=== PATIENT | female | born 1995 | race African-American/Black ===

== ENCOUNTER 2017-07-20 17:46 | Emergency (ER) | payer MEDICAID, OTHER ==
[~2017-07-20] VITALS: Ht 160 cm; Wt 56.0 kg
[~2017-07-20 17:46] MED LIST: FEXO1TAB97 PO; FLUT50SP EACH NARE
[2017-07-20 17:47] VITALS: BP 115/55; PULSE 94; RESP 16; TEMP 98.8; O2SAT 100
[2017-07-20] MEDS ORDERED: IOHEXOL 350 MG/ML 10 ML VIAL (for RAD DIAG) IVCONTRAST ONE (17:47)
[2017-07-20 18:00] VITALS: O2SAT 99
--- NOTE | 2017-07-20 18:06 | PD ---
HPI Chief Complaint: Abdominal Pain Time Seen by Provider: 17:57 Travel History International Travel<30 days: No Contact w/Intl Traveler<30days: No Traveled to known affect area: No History of Present Illness HPI 22-year-old female here for evaluation of abdominal pain. The patient reports that the pain started about 5 hours ago, is in her mid abdomen and radiates to her suprapubic region, is constant, 7 out of 10, sharp, worse with urination and movements. She denies fevers or chills. No vomiting or diarrhea. No history of abdominal surgeries. Her last menstrual period was 3 weeks ago. She reports that she last had sexual intercourse 3 months ago. She denies abnormal vaginal discharge or bleeding. PFSH Past Medical History ?: Not LMP: JUNE 2017 Social History Alcohol Use: No Tobacco Use: No Substance Use: No Allergies-Medications (Allergen,Severity, Reaction): Coded Allergies: No Known Allergies (Unverified , 07/20/17) Reported Meds & Prescriptions Reported Meds & Active Scripts Active No Active Prescriptions or Reported Medications Review of Systems Except as stated in HPI: all other systems reviewed are Neg Physical Exam Narrative GENERAL: Well-developed, well-nourished, comfortable, no apparent distress. SKIN: Focused skin assessment warm/dry. HEAD: Atraumatic. Normocephalic. EYES: Pupils equal and round. No scleral icterus. No injection or drainage. ENT: Mucous membranes pink and moist. NECK: Trachea midline. No JVD. CARDIOVASCULAR: Regular rate and rhythm. RESPIRATORY: No accessory muscle use. Clear to auscultation. Breath sounds equal bilaterally. GASTROINTESTINAL: Abdomen soft, nondistended. Moderate diffuse tenderness without peritoneal signs. No hernias. Normal bowel sounds. 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 Normal external genitalia. Scant/physiologic/jup-[id number]-[id number] vaginal discharge. Normal- appearing cervix. No CMT. No adnexal masses or tenderness. MUSCULOSKELETAL: No obvious deformities. No clubbing. No cyanosis. No edema. NEUROLOGICAL: Awake and alert. No obvious cranial nerve deficits. Motor grossly within normal limits. Normal speech. PSYCHIATRIC: Appropriate mood and affect; insight and judgment normal. Data Data Last Documented VS Vital Signs Date Time Temp Pulse Resp B/P (MAP) Pulse Ox O2 Delivery O2 Flow Rate FiO2 07/20/17 18:00 99 Room Air 07/20/17 17:47 98.8 94 16 115/55 (75) Orders Orders Beta Hcg (Quant/Titer) (07/20/17 18:01) Complete Blood Count With Diff (07/20/17 18:) Comprehensive Metabolic Panel (07/20/17 18:) Lipase (07/20/17 18:01) Prothrombin Time / Inr (Pt) (07/20/17 18:) Act Partial Throm Time (Ptt) (07/20/17 18:) Urinalysis - C+S If Indicated (07/20/17 18:) Iv Access Insert/Monitor (07/20/17 18:) Ecg Monitoring (07/20/17 18:) Oximetry (07/20/17 18:) Sodium Chloride 0.9% Flush (Ns Flush) (07/20/17 18:15) Ed Urine Pregnancytest Poc (07/20/17 18:) Gc And Chlamydia Pcr (07/20/17 18:02) Wet Prep Profile (07/20/17 18:02) Ct Abd/Pel W Iv Contrast(Rout) (07/20/17 18:07) Diatrizoate Liq ( Gastroview Liq) (07/20/17 18:15) Oral Contrast - Adult (07/20/17 18:14) Ketorolac Inj (Toradol Inj) (07/20/17 18:30) Urine Culture (07/20/17 18:00) Iohexol 350 Inj (Omnipaque 350 Inj) (07/20/17 17:47) Ceftriaxone Inj (Rocephin Inj) (07/20/17 20:00) Labs Laboratory Tests Test 07/20/17 18:00 07/20/17 18:15 Urine Color YELLOW Urine Turbidity HAZY Urine pH 6.0 Urine Specific [place] 1.025 Urine Protein TRACE mg/dL Urine Glucose (UA) NEG mg/dL Urine Ketones 10 mg/dL Urine Occult Blood NEG Urine Nitrite POS Urine Bilirubin NEG Urine Urobilinogen 8.0 MG/DL Urine Leukocyte Esterase LARGE Urine RBC 3 /hpf Urine WBC 36 /hpf Urine Squamous Epithelial Cells 13 /hpf Urine Bacteria MANY /hpf Urine Mucus MOD /lpf Microscopic Urinalysis Comment CULTURE INDICATED White Blood Count 9.3 TH/MM3 Red Blood Count 3.93 MIL/MM3 Hemoglobin 11.2 GM/DL Hematocrit 33.8 % Mean Corpuscular Volume 86.1 FL Mean Corpuscular Hemoglobin 28.6 PG Mean Corpuscular Hemoglobin Concent 33.3 % Red Cell Distribution Width 13.8 % Platelet Count 244 TH/MM3 Mean Platelet Volume 9.8 FL Neutrophils (%) (Auto) 64.7 % Lymphocytes (%) (Auto) 26.1 % Monocytes (%) (Auto) 6.5 % Eosinophils (%) (Auto) 2.3 % Basophils (%) (Auto) 0.4 % Neutrophils # (Auto) 6.0 TH/MM3 Lymphocytes # (Auto) 2.4 TH/MM3 Monocytes # (Auto) 0.6 TH/MM3 Eosinophils # (Auto) 0.2 TH/MM3 Basophils # (Auto) 0.0 TH/MM3 CBC Comment DIFF FINAL Differential Comment Prothrombin Time 10.9 SEC Prothromb Time International Ratio 1.1 RATIO Activated Partial Thromboplast Time 29.0 SEC Clue Cells (Wet Prep) NONE SEEN Vaginal Trichomonas (Wet Prep) NONE SEEN Vaginal Yeast (Wet Prep) NONE SEEN Blood Urea Nitrogen 16 MG/DL Creatinine 0.90 MG/DL Random Glucose 89 MG/DL Total Protein 8.0 GM/DL Albumin 4.1 GM/DL Calcium Level 8.7 MG/DL Alkaline Phosphatase 56 U/L Aspartate Amino Transf (AST/SGOT) 12 U/L Alanine Aminotransferase (ALT/SGPT) 13 U/L Total Bilirubin 0.5 MG/DL Sodium Level 138 MEQ/L Potassium Level 3.6 MEQ/L Chloride Level 106 MEQ/L Carbon Dioxide Level 24.9 MEQ/L Anion Gap 7 MEQ/L Estimat Glomerular Filtration Rate 97 ML/MIN Lipase 82 U/L Human Chorionic Gonadotropin, Quant LESS THAN 1 MIU/ML MDM Medical Decision Making Medical Screen Exam Complete: Yes Emergency Medical Condition: Yes Differential Diagnosis Appendicitis, cystitis, UTI, , ectopic , ovarian cyst, ovarian torsion, PID Narrative Course Initial vital signs show heart rate 94, blood pressure 115/55, pulse ox 100% on room air, oral temperature 98.8F. CBC: WBC 9.3, hemoglobin 11.2, hematocrit 33.8, platelets 244. CMP is unremarkable. Lipase is 82. Beta-hCG is negative. UA: Hazy, 10 ketones, positive nitrites, large leukocyte esterase, 36 WBCs, many bacteria, moderate mucus. Wet prep is negative. CT abdomen pelvis: CONCLUSION: 1. 4.0 x 3.9 cm right ovarian cyst. 2. Moderate amount of free fluid within the cul-de-sac. Patient was given 1 g of IV Rocephin for her UTI. She was also given IV Toradol. On reassessment she is resting comfortably. There are no peritoneal signs on exam. She was made aware of all findings and provided a copy of her CT abdomen pelvis report. At this time she is stable for discharge home with outpatient follow-up. She does not have a primary care physician. I will give her the information to the [facility] as well as the women[facility] care clinic here at [place] to follow-up with this week. She will be given a prescription for Bactrim. Ibuprofen for pain. She was advised on when to return to the emergency department. She verbalizes understanding and agreement with plan. Diagnosis Primary Impression: UTI (urinary tract infection) Qualified Codes: N30.00 - Acute cystitis without hematuria Additional Impression: Right ovarian cyst Referrals: [facility] 3 days [facility] 3 days Additional Instructions: Follow-up with a primary care physician this week. Follow-up with a lead infrastructure architect this week. Take ibuprofen for pain. Return to the emergency department for worsening symptoms or any other concerns. Scripts Sulfamethoxazole-Trimethoprim (Bactrim DS) 800-160 Mg Tab 1 TAB PO BID for Infection, #6 TAB 0 Refills Prov: Vazquez Cuadra MD 07/20/17 Disposition: 01 DISCHARGE HOME Condition: Stable Vazquez Cuadra MD July 20, 2017 18:06
[2017-07-20] MEDS ORDERED: SODIUM CHLORIDE 0.9% FLUSH 10 ML FLUSH IV FLUSH PRN (18:15)
[2017-07-20] MEDS ORDERED: DIATRIZOATE MEGLUM/DIATRIZOATE SOD 9 ML CUP PO ONE (18:15)
[2017-07-20 18:30] LABS: BASOPHIL % 0.4 % (0.0-2.0); EOSINOPHIL # 0.2 TH/MM3 (0-0.4); EOSINOPHIL % 2.3 % (0.0-4.0); HEMATOCRIT 33.8 % (35.0-46.0); HEMOGLOBIN 11.2 GM/DL (11.6-15.3); LYMPH % 26.1 % (9.0-44.0); LYMPHOCYTE # 2.4 TH/MM3 (1.0-4.8); MEAN CELL VOLUME 86.1 FL (80.0-100.0); MEAN CORPUSCULAR HEMOGLOBIN 28.6 PG (27.0-34.0); MEAN CORPUSCULAR HGB CONC 33.3 % (32.0-36.0); MEAN PLATELET VOLUME 9.8 FL (7.0-11.0); MONO % 6.5 % (0.0-8.0); MONOCYTE # 0.6 TH/MM3 (0-0.9); NEUT % 64.7 % (16.0-70.0); PLATELET COUNT 244 TH/MM3 (150-450); RED BLOOD COUNT 3.93 MIL/MM3 (4.00-5.30); RED CELL DISTRIBUTION WIDTH 13.8 % (11.6-17.2); WHITE BLOOD COUNT 9.3 TH/MM3 (4.0-11.0)
[2017-07-20] MEDS ORDERED: KETOROLAC TROMETHAMINE 30 MG/ML (IVP) VIAL IV PUSH ONE (18:30)
[2017-07-20 18:34] LABS: BACTERIA, URINE MANY /hpf; BILIRUBIN, URINE NEG (NEG); BLOOD, URINE NEG (NEG); GLUCOSE,URINE NEG (NEG); KETONE, URINE 10 mg/dL (NEG); MUCUS URINE MOD /lpf (OCC); NITRITE,URINE POS (NEG); SQUAMOUS EPITHELIAL CELL URINE 13 /hpf (0-5); URINE COLOR YELLOW (YELLW/STRAW); URINE LEUKOCYTE ESTERASE LARGE (NEG)
[2017-07-20 18:46] LABS: INTERNATIONAL NORMALIZED RATIO 1.1 RATIO; PROTHROMBIN TIME - PATIENT 10.9 SEC (9.8-11.6)
[2017-07-20 18:53] LABS: ALBUMIN 4.1 GM/DL (3.4-5.0); AST (GOT) 12 U/L (16-38); BICARBONATE 24.9 MEQ/L (21.0-32.0); BLOOD UREA NITROGEN 16 MG/DL (7-18); CALCIUM 8.7 MG/DL (8.5-10.1); CHLORIDE 106 MEQ/L (98-107); GLOMERULAR FILTRATION RATE 97 ML/MIN (>89); GLUCOSE,RANDOM 89 MG/DL (74-106); SODIUM (NA) 138 MEQ/L (136-145)
[2017-07-20 18:54] LABS: ALT (GPT) 13 U/L (9-42)
[2017-07-20 18:58] LABS: ALKALINE PHOSPHATASE 56 U/L (45-117); TOTAL BILIRUBIN ADULT 0.5 MG/DL (0.2-1.0)
--- NOTE | 2017-07-20 19:48 | RADRPT ---
EXAM DATE/TIME: 07/20/2017 19:21 [place] COMPARISON: No previous studies available for comparison. INDICATIONS : Mid to lower abdominal pain. IV CONTRAST: 95 cc Omnipaque 350 (iohexol) IV ORAL CONTRAST: Prescribed oral contrast ingested. RADIATION DOSE: 4.77 CTDIvol (mGy) MEDICAL HISTORY : None SURGICAL HISTORY : None. ENCOUNTER: Initial ACUITY: 1 day PAIN SCALE: 7/10 LOCATION: low abdomen TECHNIQUE: Volumetric scanning of the abdomen and pelvis was performed. Using automated exposure control and ad justment of the mA and/or kV according to patient size, radiation dose was kept as low as reasonably achievable to obtain optimal diagnostic quality images. DICOM format image data is available electro nically for review and comparison. FINDINGS: LOWER LUNGS: The visualized lower lungs are clear. LIVER: Homogeneous density without lesion. There is no dilation of the biliary tree. No calcified gallston es. SPLEEN: Normal size without lesion. PANCREAS: Within normal limits. KIDNEYS: Normal in size and shape. There is no mass, stone or hydronephrosis. ADRENAL GLANDS: Within normal limits. VASCULAR: There is no aortic aneurysm. BOWEL/MESENTERY: The stomach, small bowel, and colon demonstrate no acute abnormality. There is no free intraperitone al air or fluid. ABDOMINAL WALL: Within normal limits. RETROPERITONEUM: There is no lymphadenopathy. BLADDER: No wall thickening or mass. REPRODUCTIVE: There is a right ovarian cyst measuring 4.0 x 3.9 cm. Moderate amount of free fluid is noted within t he cul-de-sac. INGUINAL: There is no lymphadenopathy or hernia. MUSCULOSKELETAL: Within normal limits for patient age. CONCLUSION: 1. 4.0 x 3.9 cm right ovarian cyst. 2. Moderate amount of free fluid within the cul-de-sac. John Barbosa MD on July 20, 2017 at 19:41 Board Certified Radiologist. This report was verified electronically.
[2017-07-20] MEDS ORDERED: BACT800T5 PO (19:59)
[2017-07-20] MEDS ORDERED: cefTRIAXone INJ 1,000 MG in SODIUM CHLORIDE 0.9% INJ 100 ML IV ONE (20:00)
== END 2017-07-20 20:47 | disposition home or self-care (01) ==
LOC: NEPD 17:46
DX: N30.00 Acute cystitis without hematuria (principal); N83.201 Unspecified ovarian cyst, right side
CPT/HCPCS: 74177; 80053; 81001; 83690; 84702; 84703; 85025; 85610; 85730; 87077; 87086; 87186; 87210; 87491; 87591; 96365; 96375; 99284; J0696; J1885; Q9963; Q9967

== ENCOUNTER 2017-07-21 13:29 | Emergency (ER) | payer MEDICAID ==
[2017-07-21] MEDS: ONDANSETRON ODT 4 MG TAB PO (14:48)
[2017-07-21] MEDS: AZITHROMYCIN PWD FOR SUSP 1 GM PACKET PO (14:48)
== END 2017-07-21 15:10 | disposition home or self-care (01) ==
LOC: NEPD 13:29
DX: A56.8 Sexually transmitted chlamydial infection of other sites (principal); A54.9 Gonococcal infection, unspecified; Z79.2 Long term (current) use of antibiotics
CPT/HCPCS: 99281